=== PATIENT | male | born 1970 | race African-American/Black ===

== ENCOUNTER 2017-01-31 05:49 | Observation (INO) | payer MEDICARE, MEDICAID ==
[~2017-01-31] VITALS: Ht 179.1 cm; Wt 78.6 kg
[2017-01-31 06:13] VITALS: BP 125/80
[2017-01-31] MEDS ORDERED: RISP4TAB2 PO (06:24)
[2017-01-31] MEDS ORDERED: QUET200T4 PO (06:24)
[2017-01-31] MEDS ORDERED: SERT50TA5 PO (06:24)
[2017-01-31] MEDS ORDERED: IBUP-1223 PO (06:24)
[2017-01-31] MEDS ORDERED: BACL20TA PO (06:24)
[2017-01-31] MEDS ORDERED: SODIUM CHLORIDE 0.9% 1,000 ML IV SCH (06:50)
[2017-01-31] MEDS ORDERED: CEFAZOLIN PMX 1GM/50ML 50 ML IVPB ONE (07:00)
[2017-01-31 07:05] LABS: HEMATOCRIT 44.7 % (39.2-51.8); HEMOGLOBIN 14.9 g/dL (13.7-18.0); WHITE BLOOD COUNT 4.1 x10^3/uL (3.4-10)
[2017-01-31 07:18] LABS: ASPARTATE AMINO TRANSFERASE 16 U/L (15-37); BLOOD UREA NITROGEN 15 mg/dL (7-18)
[2017-01-31] MEDS ORDERED: FLECAINIDE 100MG TABLET PO ONE (07:30)
[2017-01-31] MEDS ORDERED: MIDAZOLAM 1 MG/ML, 5ML ONE (11:06)
[2017-01-31] MEDS ORDERED: CEFAZOLIN 1,000 MG ONE (11:07)
[2017-01-31] MEDS ORDERED: CEFAZOLIN PMX 1GM/50ML 50 ML ONE (11:07)
[2017-01-31] MEDS ORDERED: LIDOCAINE 2%, 20ML ONE (11:07)
[2017-01-31] MEDS ORDERED: FENTANYL PF 100 MCG/2ML ONE (11:07)
[2017-01-31] MEDS ORDERED: DIPHENHYDRAMINE 50 MG/ML, 1ML ONE (11:09)
[2017-01-31] MEDS ORDERED: IBUPROFEN 800 MG TABLET PO PRN (12:30)
[2017-01-31] MEDS ORDERED: ZOLPIDEM 5MG TABLET PO PRN (12:30)
[2017-01-31] MEDS ORDERED: BACLOFEN 10 MG TABLET PO PRN (12:30)
[2017-01-31 12:51] VITALS: BP 147/98
[2017-01-31] MEDS: HYDROcodone/APAP 5/325 TABLET PO PRN ×2 (13:57→18:26)
[2017-01-31 19:04] VITALS: BP 136/89
[2017-01-31] MEDS: CEFAZOLIN PMX 1GM/50ML 50 ML IVPB SCH (20:54)
[2017-01-31] MEDS: SODIUM CHLORIDE FLUSH 10ML SYR IVF SCH (20:55)
[2017-01-31] MEDS ORDERED: RISPERIDONE 2 MG TABLET PO SCH (21:00)
[2017-01-31] MEDS ORDERED: QUETIAPINE 200 MG TABLET PO SCH (21:00)
[2017-01-31] MEDS ORDERED: PNEUMOCOCCAL 23 VACCINE IM-VACC ONE (21:30)
[2017-01-31] MEDS ORDERED: FLU VACC QS2017-18 (36MOS+) UP/PF 0.5 ML IM-VACC ONE (21:30)
[2017-01-31] MEDS ORDERED: IBUPROFEN 200 MG TABLET ONE (22:21)
[2017-02-01 01:30] VITALS: BP 102/67
[2017-02-01] MEDS: CEFAZOLIN PMX 1GM/50ML 50 ML IVPB SCH (05:20)
[2017-02-01 07:43] VITALS: BP 109/69
[2017-02-01] MEDS: SODIUM CHLORIDE FLUSH 10ML SYR IVF SCH (08:59)
[2017-02-01] MEDS ORDERED: RISPERIDONE 2 MG TABLET PO SCH (09:00)
[2017-02-01] MEDS ORDERED: QUETIAPINE 200 MG TABLET PO SCH (09:00)
[2017-02-01] MEDS ORDERED: SERTRALINE 50MG TABLET PO SCH (09:00)
== END 2017-02-01 13:51 | disposition home or self-care (01) ==
LOC: CACL 05:49 → ORIP 12:15 → 5SO 12:36
PROVIDERS: ADMIT Internal Medicine Cardiovascular Disease; ATTEND Internal Medicine Cardiovascular Disease
DX: I49.8 Other specified cardiac arrhythmias (principal); I44.30 Unspecified atrioventricular block; F31.9 Bipolar disorder, unspecified; R00.2 Palpitations; Z23 Encounter for immunization
CPT/HCPCS: 33208; 36005; 36415; 71010; 71020; 80053; 85025; 90686; 90732; 93005; 96365; 96375; 99156; 99157; C1779; C1785; C1892; G0008; G0009; G0378; J0690; J2250; J3010; J3490; Q9967; J1200

== ENCOUNTER 2019-04-23 13:01 | Outpatient (CLI) | payer MEDICARE ==
[~2019-04-23 13:01] MED LIST: BACL20TA PO; IBUP-1223 PO; QUET200T4 PO; RISP4TAB2 PO; SERT50TA28 PO
[2019-04-23 16:11] LABS: ALANINE AMINOTRANSFERASE 30 U/L (12-78); ALBUMIN 3.8 g/dL (3.4-5.0); ANION GAP 6 mmol/L (5-15); CALCIUM 8.6 mg/dL (8.5-10.1); CHLORIDE 111 mmol/L (98-107); CHOLESTEROL, TOTAL 215 mg/dL (140-239); CREATININE 1.19 mg/dL (0.7-1.3); TRIGLYCERIDES 63 mg/dL (50-200); VLDL CHOLESTEROL 13 mg/dL (0-25)
[2019-04-23 16:14] LABS: ALKALINE PHOSPHATASE 56 U/L (45-117); BILIRUBIN,TOTAL 0.4 mg/dL (0.2-1.0); CHOL/HDL RATIO 2.3; HDL CHOL % 43 % (26-37); HDL CHOLESTEROL (DIRECT) 92 mg/dL (40-60); LDL CHOLESTEROL,CALCULATED 110 mg/dL (54-169); LDL/HDL RATIO 1.2 (0.5-3.0); TOTAL PROTEIN 7.4 g/dL (6.4-8.2)
== END 2019-04-23 23:59 | disposition home or self-care (01) ==
LOC: CFH 13:01
PROVIDERS: ATTEND Internal Medicine Cardiovascular Disease
DX: E78.2 Mixed hyperlipidemia (principal); I49.8 Other specified cardiac arrhythmias
CPT/HCPCS: 36415; 80053; 80061

== ENCOUNTER 2019-08-18 12:54 | Outpatient (CLI) | payer MEDICARE ==
[~2019-08-18 12:54] MED LIST changes: +LIDOCAINE-MPF 1%, 5ML ONE
[2019-08-18] MEDS ORDERED: LIDOCAINE 1%, 10ML ONE (13:10)
[2019-08-18] MEDS ORDERED: LIDOCAINE-MPF 1%, 5ML ONE (13:10)
== END 2019-08-18 23:59 | disposition home or self-care (01) ==
LOC: RAD 12:54
PROVIDERS: ATTEND Family Medicine
DX: D44.0 Neoplasm of uncertain behavior of thyroid gland (principal); E04.1 Nontoxic single thyroid nodule
CPT/HCPCS: 10005; 88173

== ENCOUNTER 2019-10-28 15:28 | Outpatient (CLI) | payer MEDICARE, OTHER ==
[~2019-10-28 15:28] MED LIST changes: -LIDOCAINE-MPF 1%, 5ML ONE
[2019-10-28] MEDS ORDERED: OMEP-110 PO (16:07)
[2019-10-28] MEDS ORDERED: QUET100T4 PO (16:07)
[2019-11-01] MEDS ORDERED: MIDAZOLAM 1 MG/ML, 2ML ONE (07:07)
[2019-11-01] MEDS ORDERED: PROPOFOL 50 ML ONE ×2 (07:07→07:50)
[2019-11-01] MEDS ORDERED: FENTANYL PF 250 MCG/5ML ONE (07:08)
[2019-11-01] MEDS ORDERED: ROCURONIUM 10MG/ML,5ML ONE (07:50)
[2019-11-01] MEDS ORDERED: CEFAZOLIN 1,000 MG ONE ×2 (07:50→07:51)
[2019-11-01] MEDS ORDERED: SUCCINYLCHOLINE 20 MG/ML, 10ML ONE (07:51)
== END 2019-10-28 23:59 | disposition home or self-care (01) ==
LOC: STAR 15:28
PROVIDERS: ATTEND Surgery
DX: Z01.818 Encounter for other preprocedural examination (principal); Z11.59 Encounter for screening for other viral diseases
CPT/HCPCS: 36415; 84432; 86800; 87635; 93005

== ENCOUNTER 2019-11-01 05:51 | Day surgery (SDC) | payer MEDICARE, OTHER ==
[~2019-11-01] VITALS: Ht 177.8 cm; Wt 78.3 kg
[~2019-11-01 05:51] MED LIST changes: +OMEP-110 PO; +QUET100T4 PO
[2019-11-01] MEDS ORDERED: LACTATED RINGERS 1,000 ML IV SCH ×2 (06:38→12:00)
[2019-11-01] MEDS ORDERED: CHLORHEXIDINE 15 ML UDC MM STA (06:39)
[2019-11-01] MEDS ORDERED: CHLORHEXIDINE 15 ML UDC ONE (06:42)
[2019-11-01] MEDS ORDERED: FENTANYL PF 100 MCG/2ML ONE ×2 (07:26→09:18)
[2019-11-01] MEDS ORDERED: ONDANSETRON 2MG/ML, 2ML ONE ×2 (07:26→09:34)
[2019-11-01] MEDS ORDERED: ROCURONIUM 10 MG/ML,10ML ONE (07:26)
[2019-11-01] MEDS ORDERED: CEFAZOLIN PMX 2GM/50ML IVPB ONE (07:26)
[2019-11-01] MEDS ORDERED: MIDAZOLAM 1 MG/ML, 5ML ONE (07:26)
[2019-11-01] MEDS ORDERED: SUCCINYLCHOLINE 20 MG/ML, 10ML ONE (07:26)
[2019-11-01] MEDS ORDERED: PROPOFOL 10 MG/ML, 100ML IV ONE (07:26)
[2019-11-01] MEDS ORDERED: DEXAMETHASONE 4 MG/ML, 1ML ONE (07:26)
[2019-11-01] MEDS ORDERED: ONDANSETRON 2MG/ML, 2ML IVPush PRN (07:30)
[2019-11-01] MEDS ORDERED: ACETAMINOPHEN 325 MG TABLET PO PRN (07:30)
[2019-11-01] MEDS ORDERED: EPHEDRINE 50 MG/ML, 1ML IM PRN (07:30)
[2019-11-01] MEDS ORDERED: DIAZEPAM 5 MG/ML, 2ML IVPush PRN (07:30)
[2019-11-01] MEDS ORDERED: MEPERIDINE/PF 25MG/0.5ML IVPush PRN (07:30)
[2019-11-01] MEDS ORDERED: OXYcodone 5 MG/5 ML ORAL.SOL UDC PO PRN (07:30)
[2019-11-01] MEDS ORDERED: EPHEDRINE 50 MG/ML, 1ML IVPush PRN (07:30)
[2019-11-01] MEDS ORDERED: DIPHENHYDRAMINE 50 MG/ML, 1ML IVPush PRN (07:30)
[2019-11-01] MEDS ORDERED: HYDROmorphone 1 MG/ML, 1ML INJ IVPush PRN (07:30)
[2019-11-01] MEDS ORDERED: PROMETHAZINE 25 MG/ML, 1ML IVPush PRN (07:30)
[2019-11-01] MEDS ORDERED: OXYcodone 5 MG/5 ML ORAL.SOL UDC ONE (09:19)
[2019-11-01] MEDS: FENTANYL PF 100 MCG/2ML IV PRN ×4 (09:21→09:50)
[2019-11-01] MEDS ORDERED: PROMETHAZINE 25 MG/ML, 1ML ONE (09:52)
[2019-11-01] MEDS: LABETALOL 5MG/ML, 20ML IV PRN ×2 (09:54→10:15)
[2019-11-01] MEDS ORDERED: LABETALOL 5MG/ML, 20ML ONE (10:00)
[2019-11-01] MEDS ORDERED: hydrALAzine 20 MG/ML, 1ML ONE (10:18)
[2019-11-01] MEDS ORDERED: HYDROmorphone 1 MG/ML, 1ML INJ ONE (10:31)
[2019-11-01 11:00] VITALS: BP 137/86
[2019-11-01] MEDS ORDERED: hydrALAzine 20 MG/ML, 1ML IV ONE (11:00)
[2019-11-01] MEDS: morphine SULFATE 10 MG/ML, 1ML IV PRN ×2 (11:49→12:25)
[2019-11-01 12:52] LABS: ALBUMIN 4.3 g/dL (3.4-5.0); CALCIUM 8.9 mg/dL (8.5-10.1)
[2019-11-01] MEDS: HYDROcodone/APAP 5/325 TABLET PO PRN ×2 (13:27→17:33)
[2019-11-01 14:30] VITALS: BP 169/99
[2019-11-01] MEDS ORDERED: ONDANSETRON 2MG/ML, 2ML IV PRN (15:35)
[2019-11-01 16:30] VITALS: BP 123/75
[2019-11-01] MEDS ORDERED: HYDR-3240 PO (16:47)
[2019-11-01] MEDS ORDERED: LEVO125T PO (16:48)
[2019-11-01 18:21] LABS: ALBUMIN 3.8 g/dL (3.4-5.0); CALCIUM 8.1 mg/dL (8.5-10.1)
[2019-11-01 19:12] VITALS: BP 134/82
[2019-11-01] MEDS ORDERED: QUETIAPINE 100MG TABLET PO SCH (21:00)
[2019-11-01] MEDS ORDERED: RISPERIDONE 2 MG TABLET PO SCH (21:00)
[2019-11-02] MEDS ORDERED: OMEPRAZOLE 20 MG CAPSULE.DR PO SCH (06:00)
== END 2019-11-01 20:48 | disposition home or self-care (01) ==
LOC: OUT 05:51 → 4NE 10:50 → OUT 20:48
PROVIDERS: ATTEND Surgery
DX: E04.2 Nontoxic multinodular goiter (principal); Z79.899 Other long term (current) drug therapy; Z87.891 Personal history of nicotine dependence
CPT/HCPCS: 36415; 60240; 82040; 82310; 88307; C1760; J0330; J0360; J0690; J1100; J1170; J2250; J2270; J2405; J2550; J2704; J3010; J7120; G0378

== ENCOUNTER → 2020-03-02 | Outpatient (CLI) | payer MEDICARE, MEDICAID ==
[~2020-03-02] MED LIST changes: +HYDR-3240 PO; +LEVO125T PO; -RISP4TAB2 PO; +RISP4TAB66 PO
== END | disposition home or self-care (01) ==
LOC: RAD 14:38
PROVIDERS: ATTEND Registered Nurse
DX: K21.9 Gastro-esophageal reflux disease without esophagitis (principal); R13.19 Other dysphagia; R07.89 Other chest pain; Z68.24 Body mass index [BMI] 24.0-24.9, adult
CPT/HCPCS: 74220